=== PATIENT | female | born 1985 | race Asian ===

== ENCOUNTER 2021-03-20 21:15 | Emergency (ER) | payer OTHER ==
[~2021-03-20] VITALS: Ht 157.5 cm; Wt 54.5 kg
[~2021-03-20 21:15] MED LIST: [UNRECOGNIZED DRUG - REMARK]
[2021-03-20] MEDS ORDERED: MORPHINE SULFATE 2 MG/ML SYRINGE IVP ONE (22:45)
[2021-03-20] MEDS ORDERED: ONDANSETRON HCL 4 MG/2 ML VIAL IVP ONE (22:45)
[2021-03-20] MEDS ORDERED: SODIUM CHLORIDE 0.9% 1,000 ML IV ONE (22:45)
[2021-03-20 22:57] LABS: BASOPHILS % (AUTO) 0.6 % (0.0-2.0); EOSINOPHILS % (AUTO) 4.1 % (1.0-6.0); HEMATOCRIT 37.7 % (36-46); HEMOGLOBIN 12.4 g/dL (12.0-16.0); LYMPHOCYTES # (AUTO) 2.3 K/uL (1.0-4.8); MEAN CORPUSCULAR HEMOGLOBIN 31.5 pg (26.0-34.0); MEAN CORPUSCULAR VOLUME 96 fL (80-100); MONOCYTES # (AUTO) 0.5 K/uL (0.1-1.0); MONOCYTES % (AUTO) 6.8 % (2.0-9.0); NEUTROPHILS # (AUTO) 3.5 K/uL (1.8-7.7); NEUTROPHILS % (AUTO) 53.5 % (40.0-70.0); PLATELET COUNT (AUTO) 230 K/uL (150-450); RED BLOOD CELL COUNT(AUTO) 3.94 MIL/uL (4.00-5.20); RED CELL DISTRIBUTION WIDTH 12.7 % (11.5-14.5)
[2021-03-20 23:07] LABS: ANION GAP 3 mmol/L (8-16); CALCIUM, TOTAL 8.9 mg/dL (8.8-10.5); CARBON DIOXIDE 28 mmol/L (22-29); CHLORIDE 106 mmol/L (98-107); CREATININE 0.58 mg/dL (0.60-1.30); GLOMERULAR FILTR. RATE CALC > 60 mL/min (>60); GLUCOSE,RANDOM 93 mg/dL (70-110); POTASSIUM 3.9 mmol/L (3.5-5.1); SODIUM SERUM 137 mmol/L (136-145); UREA NITROGEN, BLOOD 10 mg/dL (7-18)
[2021-03-20] MEDS ORDERED: IOHEXOL 350 MG/ML 100 ML VIAL ONE (23:25)
[2021-03-20] MEDS ORDERED: SODIUM CHLORIDE 0.9% 100 ML ONE (23:25)
[2021-03-20 23:34] LABS: ALANINE AMINOTRANSFERASE 18 U/L (12-78); ALBUMIN 3.6 g/dL (3.4-5.0); ALKALINE PHOSPHATASE 52 U/L (46-116); ASPARTATE AMINOTRANSFERASE 17 U/L (15-37); BILIRUBIN,TOTAL 0.4 mg/dL (0.1-1.0); CREATINE KINASE, TOTAL ONLY 152 U/L (26-192); HCG,QUANTITATIVE < 1 mIU/mL (0-6); LIPASE 121 U/L (73-393); TOTAL PROTEIN, SERUM 7.4 g/dL (6.4-8.2)
[2021-03-20 23:44] LABS: COVID AG,FIA SOURCE NASOPHARYNGEAL
[2021-03-21 02:29] LABS: APPEARANCE,URINE CLEAR (CLEAR); BILIRUBIN,URINE NEGATIVE (NEGATIVE); GLUCOSE, URINE (UA) NEGATIVE (NEGATIVE); KETONES,URINE TRACE mg/dL (NEGATIVE); LEUKOCYTE ESTERASE ,URINE NEGATIVE (NEGATIVE); NITRATE,URINE NEGATIVE (NEGATIVE); OCCULT BLOOD,URINE SMALL (NEGATIVE); PROTEIN,URINE NEGATIVE (NEGATIVE); UROBILINOGEN,URINE 0.2 mg/dL (<=1.0)
[2021-03-21 02:39] VITALS: BP 116/65
[2021-03-21 03:01] LABS: SQUAMOUS EPITHELIAL CELL,UR Few /LPF (None Seen); WBC,URINE 0-2 /HPF (0-5)
[2021-03-21 03:02] LABS: RBC,URINE 0-2 /HPF (0-2)
[2021-03-21 03:03] LABS: BACTERIA,URINE None Seen /HPF (None Seen)
== END 2021-03-21 03:06 | disposition home or self-care (01) ==
LOC: EMS 21:19
DX: R19.7 Diarrhea, unspecified (principal); R91.8 Other nonspecific abnormal finding of lung field; R10.32 Left lower quadrant pain; R11.0 Nausea; Z20.822 Contact with and (suspected) exposure to COVID-19; Z88.0 Allergy status to penicillin; Z88.8 Allergy status to other drugs, medicaments and biological substances
CPT/HCPCS: 36415; 71045; 74177; 80053; 81001; 82550; 83690; 83735; 84702; 85025; 87426; 96361; 96374; 96375; 99285; A9575; J2270; J2405; J7030; J7050; U0003

== ENCOUNTER 2024-12-02 18:15 | Emergency (ER) | payer OTHER ==
[~2024-12-02] VITALS: Ht 160 cm; Wt 54.5 kg
[2024-12-02 18:26] VITALS: TEMP 99.5
[2024-12-02 20:00] LABS: COVID AG,FIA SOURCE NASAL SWAB
[2024-12-02 20:23] LABS: INFLUENZA TYPE A NEGATIVE FOR TYPE A (NEGATIVE); INFLUENZA TYPE B NEGATIVE FOR TYPE B (NEGATIVE); SARS-COV2 (COVID) ANTIGEN,FIA Negative (Negative)
[2024-12-02 21:40] VITALS: BP 116/66; PULSE 85; RESP 18; O2SAT 99
[2024-12-02 22:08] LABS: APPEARANCE,URINE CLEAR (CLEAR); BILIRUBIN,URINE NEGATIVE (NEGATIVE); COLOR,URINE LIGHT YELLOW (YELLOW); GLUCOSE, URINE (UA) NEGATIVE (NEGATIVE); KETONES,URINE NEGATIVE (NEGATIVE); LEUKOCYTE ESTERASE ,URINE MODERATE (NEGATIVE); NITRATE,URINE NEGATIVE (NEGATIVE); OCCULT BLOOD,URINE MODERATE (NEGATIVE); PH,URINE 5.5 (5.0-8.0); PROTEIN,URINE 30-70 mg/dL (NEGATIVE); SPECIFIC GRAVITIY, URINE 1.009 (1.003-1.030); UROBILINOGEN,URINE <=1.0 mg/dL (<=1.0)
[2024-12-02 22:09] LABS: HCG,QUAL URINE NEGATIVE (NEGATIVE)
[2024-12-02 22:17] LABS: BACTERIA,URINE Few /HPF (None Seen); SQUAMOUS EPITHELIAL CELL,UR Few /LPF (None Seen); WBC,URINE 26-50 /HPF (0-5)
[2024-12-02] MEDS: CEPHALEXIN MONOHYDRATE 500 MG CAPSULE PO ONE (22:39)
[2024-12-02 22:44] LABS: BASOPHILS % (AUTO) 0.2 % (0.0-2.0); EOSINOPHILS % (AUTO) 1.6 % (1.0-6.0); HEMATOCRIT 34.2 % (36-46); HEMOGLOBIN 11.1 g/dL (12.0-16.0); LYMPHOCYTES # (AUTO) 1.4 K/uL (1.0-4.8); LYMPHOCYTES % (AUTO) 13.1 % (22.0-44.0); MEAN CORPUSCULAR HEMOGLOBIN 30.5 pg (26.0-34.0); MEAN CORPUSCULAR HGB CONC 32.5 G/dL (31.0-37.0); MEAN CORPUSCULAR VOLUME 94 fL (80-100); MONOCYTES # (AUTO) 0.8 K/uL (0.1-1.0); MONOCYTES % (AUTO) 7.4 % (2.0-9.0); NEUTROPHILS # (AUTO) 8.1 K/uL (1.8-7.7); NEUTROPHILS % (AUTO) 77.7 % (40.0-70.0); PLATELET COUNT (AUTO) 213 K/uL (150-450); RED BLOOD CELL COUNT(AUTO) 3.64 MIL/uL (4.00-5.20); RED CELL DISTRIBUTION WIDTH 12.3 % (11.5-14.5); WHITE BLOOD COUNT (AUTO) 10.4 K/uL (4.5-11.0)
[2024-12-02 22:52] LABS: ANION GAP 7 mmol/L (8-16); CARBON DIOXIDE 28 mmol/L (22-29); CHLORIDE 107 mmol/L (98-107); GLOMERULAR FILTR. RATE CALC > 60 mL/min (>60); GLUCOSE,RANDOM 117 mg/dL (70-110); POTASSIUM 3.6 mmol/L (3.5-5.1); SODIUM SERUM 142 mmol/L (136-145); UREA NITROGEN, BLOOD 8 mg/dL (7-18)
[2024-12-02] MEDS ORDERED: CEPH-558 PO (23:30)
== END 2024-12-02 23:55 | disposition home or self-care (01) ==
LOC: EMS 18:15
DX: N39.0 Urinary tract infection, site not specified (principal); R05.9 Cough, unspecified; R09.81 Nasal congestion; Z88.0 Allergy status to penicillin; Z20.822 Contact with and (suspected) exposure to COVID-19
CPT/HCPCS: 80048; 81001; 84703; 85025; 87086; 87804; 99283

== ENCOUNTER 2024-12-04 21:12 | Emergency (ER) | payer OTHER ==
[~2024-12-04] VITALS: Ht 167.6 cm; Wt 68.2 kg
[~2024-12-04 21:12] MED LIST changes: +CEPH-558 PO; -[UNRECOGNIZED DRUG - REMARK]
[2024-12-04 21:22] VITALS: TEMP 98.2
[2024-12-04 21:55] LABS: BASOPHILS % (AUTO) 0.4 % (0.0-2.0); EOSINOPHILS % (AUTO) 2.5 % (1.0-6.0); HEMATOCRIT 34.8 % (36-46); HEMOGLOBIN 11.3 g/dL (12.0-16.0); LYMPHOCYTES # (AUTO) 1.9 K/uL (1.0-4.8); LYMPHOCYTES % (AUTO) 17.6 % (22.0-44.0); MEAN CORPUSCULAR HEMOGLOBIN 30.5 pg (26.0-34.0); MEAN CORPUSCULAR HGB CONC 32.6 G/dL (31.0-37.0); MEAN CORPUSCULAR VOLUME 94 fL (80-100); MONOCYTES # (AUTO) 0.8 K/uL (0.1-1.0); MONOCYTES % (AUTO) 7.3 % (2.0-9.0); NEUTROPHILS # (AUTO) 7.7 K/uL (1.8-7.7); NEUTROPHILS % (AUTO) 72.2 % (40.0-70.0); PLATELET COUNT (AUTO) 270 K/uL (150-450); RED BLOOD CELL COUNT(AUTO) 3.72 MIL/uL (4.00-5.20); RED CELL DISTRIBUTION WIDTH 12.6 % (11.5-14.5); WHITE BLOOD COUNT (AUTO) 10.6 K/uL (4.5-11.0)
[2024-12-04 22:02] LABS: ANION GAP 8 mmol/L (8-16); CALCIUM, TOTAL 9.3 mg/dL (8.8-10.5); CARBON DIOXIDE 28 mmol/L (22-29); CHLORIDE 103 mmol/L (98-107); CREATININE 0.66 mg/dL (0.60-1.30); GLOMERULAR FILTR. RATE CALC > 60 mL/min (>60); GLUCOSE,RANDOM 113 mg/dL (70-110); POTASSIUM 3.6 mmol/L (3.5-5.1); SODIUM SERUM 139 mmol/L (136-145); UREA NITROGEN, BLOOD 6 mg/dL (7-18)
[2024-12-04 22:38] LABS: ALBUMIN 2.9 g/dL (3.4-5.0); BILIRUBIN,DIRECT 0.1 mg/dL (0.00-0.20); BILIRUBIN,TOTAL 0.6 mg/dL (0.1-1.0); TOTAL PROTEIN, SERUM 7.8 g/dL (6.4-8.2)
[2024-12-04 22:41] LABS: LIPASE 28 U/L (16-77)
[2024-12-04 22:42] LABS: TROPONIN I-HIGH SENSITIVITY 4 ng/L (<51)
[2024-12-05] MEDS ORDERED: IOHEXOL 350 MG/ML 100 ML VIAL ONE (01:07)
[2024-12-05] MEDS ORDERED: SODIUM CHLORIDE 0.9% 100 ML ONE (01:07)
[2024-12-05] MEDS: ONDANSETRON HCL 4 MG/2 ML VIAL IVP ONE (01:11)
[2024-12-05] MEDS: ACETAMINOPHEN 500 MG TABLET PO ONE (01:11)
[2024-12-05] MEDS: FAMOTIDINE 20 MG/2 ML VIAL IVP ONE (01:11)
[2024-12-05] MEDS: SODIUM CHLORIDE 0.9% 1,000 ML IV ONE (01:12)
[2024-12-05] MEDS ORDERED: ONDA-104 PO (02:16)
[2024-12-05 03:59] VITALS: BP 104/72; PULSE 75; RESP 16; O2SAT 97
[2024-12-05] MEDS ORDERED: LEVO750T68 PO (04:19)
[2024-12-05] MEDS ORDERED: ACET-3385 PO (04:19)
[2024-12-05] MEDS: LEVOFLOXACIN 250 MG TABLET PO ONE (04:34)
== END 2024-12-05 04:43 | disposition home or self-care (01) ==
LOC: EMS 21:12
DX: N10 Acute pyelonephritis (principal); R53.1 Weakness; R11.0 Nausea; R51.9 Headache, unspecified; Z88.0 Allergy status to penicillin; Z88.8 Allergy status to other drugs, medicaments and biological substances
CPT/HCPCS: 99285; 80048; 80076; 83690; 84484; 84703; 85025; 36415; 93005; 74177; 96374; 96361; 96375; Q9967; J3490; J2405; J7030; J7050

== ENCOUNTER 2024-12-05 07:40 | Emergency (ER) | payer OTHER ==
[~2024-12-05] VITALS: Ht 172.7 cm; Wt 68.0 kg
[~2024-12-05 07:40] MED LIST changes: +ACET-3385 PO; +LEVO750T68 PO; +ONDA-104 PO
[2024-12-05 08:36] LABS: BASOPHILS % (AUTO) 0.3 % (0.0-2.0); EOSINOPHILS % (AUTO) 2.6 % (1.0-6.0); HEMATOCRIT 32.9 % (36-46); HEMOGLOBIN 10.8 g/dL (12.0-16.0); LYMPHOCYTES # (AUTO) 1.2 K/uL (1.0-4.8); LYMPHOCYTES % (AUTO) 13.5 % (22.0-44.0); MEAN CORPUSCULAR HEMOGLOBIN 30.9 pg (26.0-34.0); MEAN CORPUSCULAR HGB CONC 32.9 G/dL (31.0-37.0); MEAN CORPUSCULAR VOLUME 94 fL (80-100); MONOCYTES # (AUTO) 0.6 K/uL (0.1-1.0); NEUTROPHILS # (AUTO) 6.7 K/uL (1.8-7.7); NEUTROPHILS % (AUTO) 76.6 % (40.0-70.0); PLATELET COUNT (AUTO) 249 K/uL (150-450); RED CELL DISTRIBUTION WIDTH 12.4 % (11.5-14.5); WHITE BLOOD COUNT (AUTO) 8.7 K/uL (4.5-11.0)
[2024-12-05] MEDS: ONDANSETRON HCL 4 MG/2 ML VIAL IVP ONE (08:44)
[2024-12-05] MEDS: LORazepam 1 MG TABLET PO ONE (08:44)
[2024-12-05] MEDS: SODIUM CHLORIDE 0.9% 500 ML IV ONE (08:45)
[2024-12-05 10:31] LABS: TROPONIN I-HIGH SENSITIVITY 5 ng/L (<51)
[2024-12-05 12:34] VITALS: BP 124/59; PULSE 89; RESP 16; TEMP 98; O2SAT 100
== END 2024-12-05 12:58 | disposition home or self-care (01) ==
LOC: EMS 07:40
DX: N39.0 Urinary tract infection, site not specified (principal); R42 Dizziness and giddiness; Z88.0 Allergy status to penicillin
CPT/HCPCS: 99284; 96374; 96361; 84484; 85025; 36415; 93005; J2405; J7040

== ENCOUNTER 2025-03-15 09:17 | Emergency (ER) | payer OTHER ==
[~2025-03-15] VITALS: Ht 157.5 cm; Wt 54.0 kg
[2025-03-15 09:28] VITALS: BP 110/63; PULSE 60; RESP 18; TEMP 98.1; O2SAT 98
[2025-03-15] MEDS: KETOROLAC TROMETHAMINE 60 MG/2 ML VIAL IM ONE (09:52)
[2025-03-15] MEDS ORDERED: DOXY-354 PO (10:42)
[2025-03-15] MEDS ORDERED: IBUP-1492 PO (10:42)
== END 2025-03-15 11:01 | disposition home or self-care (01) ==
LOC: EMS 09:17
DX: L03.811 Cellulitis of head [any part, except face] (principal); R51.9 Headache, unspecified; R59.9 Enlarged lymph nodes, unspecified; Z88.0 Allergy status to penicillin
CPT/HCPCS: 99283; 96372; J1885

== ENCOUNTER 2025-07-06 07:44 | Emergency (ER) | payer OTHER ==
[~2025-07-06] VITALS: Ht 157.5 cm; Wt 55.0 kg
[~2025-07-06 07:44] MED LIST changes: +DOXY-354 PO; +IBUP-1492 PO
[2025-07-06 07:50] VITALS: TEMP 97.7
[2025-07-06] MEDS ORDERED: PRED-554 PO (08:46)
[2025-07-06] MEDS ORDERED: DIPH50CA39 PO (08:47)
[2025-07-06] MEDS: FAMOTIDINE 20 MG/2 ML VIAL IVP ONE (08:49)
[2025-07-06] MEDS: DEXAMETHASONE SOD PHOS 4 MG/ML VIAL IVP ONE (08:49)
[2025-07-06] MEDS: LORazepam 2 MG/ML VIAL IVP ONE (09:23)
[2025-07-06 10:25] VITALS: BP 93/62; PULSE 60; RESP 15; O2SAT 100
== END 2025-07-06 10:54 | disposition home or self-care (01) ==
LOC: EMS 07:50
DX: L50.9 Urticaria, unspecified (principal); R06.02 Shortness of breath; Z88.0 Allergy status to penicillin; Z79.899 Other long term (current) drug therapy
CPT/HCPCS: 99284; 96374; 96375; 93005; J1100; J1200; J3490; J2060